=== PATIENT | female | born 1990 | race African-American/Black ===

== ENCOUNTER → 2016-12-17 08:14 | Outpatient (CLI) | payer MEDICAID ==
[2011-01-24 23:19] VITALS: BMI 18.5
== END ==
LOC: D.MRI 08:14
DX: M54.2 Cervicalgia (principal)

== ENCOUNTER 2017-11-13 09:15 | Day surgery (SDC) | payer MEDICAID ==
[2017-11-12 16:08] LABS: BASOPHILS 0.2 % (0-2); EOSINOPHILS 1.2 % (0-7); HEMATOCRIT 37.2 % (36.0-48.0); HEMOGLOBIN 12.2 g/dL (12-16); IMMATURE GRANULOCYTES 0.1 % (0-5); LYMPHOCYTES 26.2 % (15-50); MCHC 32.8 g/dL (31.0-37.0); MCV 82.3 fL (80.0-100.0); MEAN PLATELET VOLUME 10.5 fL (7.4-10.4); MONOCYTES 8.5 % (2-11); NEUTROPHILS 63.8 % (40-80); RBC 4.52 10x6/uL (4.00-5.40); RDW 14.3 % (11.5-14.5); WBC 8.5 10x3/uL (4.8-10.8)
[2017-11-12 16:24] LABS: PLATELET COUNT 284 10x3/uL (130-400)
[~2017-11-13] VITALS: Ht 170.2 cm; Wt 105.2 kg
--- NOTE | ~2017-11-13 | OP ---
PATIENT NAME: MARCI ADORNO MEDICAL RECORD: [id number] :88 LOCATION:D.[facility] ADMISSION DATE: SURGEON: YARELI SCHULTE MD DATE OF OPERATION: 11/13/2017 PREOPERATIVE DIAGNOSIS: Vaginal mass. POSTOPERATIVE DIAGNOSIS: Vaginal mass. PROCEDURE: Removal of vaginal mass. SURGEON: Yareli Schulte MD CANNERY TENDER ENGINEER: Mr. Bunch ANESTHESIOLOGIST: José Darnell MD ANESTHETIC: LMA with conscious sedation. FINDINGS: Approximately 1.5-cm fluctuant mass located superior to the right labia. This is at approximately the 10 o'clock position at the introitus. SPECIMEN REMOVED: Vaginal mass. SPECIMEN DISPOSITION: Pathology. ESTIMATED BLOOD LOSS: Minimal. FLUIDS: Lactated Ringer's 300 cc. URINE OUTPUT: Quantity sufficient void prior to the procedure. DRAINS: None. COMPLICATIONS: None. INDICATION: The patient is a 27-year-old female with a small vaginal mass that has been present, greater than 6 weeks. The patient reports discomfort with intimacy. The patient is concerned about the growth present. The patient is considered for removal of mass under anesthesia. DESCRIPTION OF PROCEDURE: After informed consent was assured, the patient was taken to the operating room, where anesthetic was obtained and she was placed in stirrups. With the help of the public health training assistant, visualization of the mass was made possible and the base was incised with a #15 blade using an elliptical incision. The mass was removed and passed to the attendant. The skin was now reapproximated with absorbable suture. The sponge, lap, and needle counts were correct at the close of this procedure. The patient was awakened and went to the recovery room in stable condition. TRANSINT:[id number] Voice Confirmation ID: [id number] DOCUMENT ID: [id number] OPERATIVE REPORT [id number] MARCI ADORNO YARELI SCHULTE MD at 1952 CC: [id number] DICTATION DATE: 11/19/171806 GAS METER READER: 11/19/17 [address] [facility] 11/13/17 [facility] [address] [place] [address]
[~2017-11-13 09:15] MED LIST: XALATAN 0.0052.5 ML EACH EYE
[2017-11-13 09:41] VITALS: BP 115/82; Ht 170.2 cm; Wt 105.2 kg
[2017-11-13 10:07] LABS: HCG URINE NEGATIVE (NEGATIVE)
== END 2017-11-13 13:55 | disposition home or self-care (01) ==
LOC: D.OPS 09:15
PROVIDERS: Obstetrics & Gynecology
DX: N90.7 Vulvar cyst (principal); Z01.812 Encounter for preprocedural laboratory examination

== ENCOUNTER 2018-05-07 10:52 | Emergency (ER) | payer MEDICAID ==
[~2018-05-07] VITALS: Ht 170.2 cm; Wt 95.5 kg
[2018-05-07 11:17] VITALS: Ht 170.2 cm; Wt 95.5 kg
[2018-05-07] MEDS ORDERED: PRENAVITE1 TAB PO (11:18)
[2018-05-07] MEDS ORDERED: PRENATAL VITAMINS (11:19)
[2018-05-07 11:56] LABS: APPEARANCE HAZY (CLEAR); BACTERIA MANY /hpf (NONE SEEN); BILIRUBIN NEGATIVE (NEGATIVE); COLOR STRAW (YELLOW); EPITHELIAL CELLS 0-5 /hpf (0-5); GLUCOSE NEGATIVE (NEGATIVE); KETONE NEGATIVE (NEGATIVE); NITRITE NEGATIVE (NEGATIVE); PROTEIN NEGATIVE (NEGATIVE); UROBILINOGEN NORMAL (NORMAL); WHITE CELLS - URINE 0-5 /hpf (0-5)
[2018-05-07] MEDS ORDERED: KEFLEX500 MG PO (13:40)
[2018-05-07 14:10] VITALS: BP 124/75
[2018-05-16] MEDS ORDERED: XALATAN 0.0052.5 ML EACH EYE (13:43)
== END 2018-05-07 14:10 | disposition home or self-care (01) ==
LOC: D.ER 10:52
PROVIDERS: Emergency Medicine
DX: O26.891 Other specified pregnancy related conditions, first trimester (principal); Z3A.01 Less than 8 weeks gestation of pregnancy; R30.0 Dysuria; R35.0 Frequency of micturition

== ENCOUNTER 2018-05-19 10:05 | Day surgery (SDC) | payer MEDICAID ==
[2018-05-16 14:10] LABS: BASOPHILS 0.3 % (0-2); HEMATOCRIT 35.3 % (36.0-48.0); HEMOGLOBIN 11.7 g/dL (12-16); IMMATURE GRANULOCYTES 0.3 % (0-5); LYMPHOCYTES 20.1 % (15-50); MCHC 33.1 g/dL (31.0-37.0); MCV 81.5 fL (80.0-100.0); MEAN PLATELET VOLUME 10.3 fL (7.4-10.4); MONOCYTES 9.1 % (2-11); NEUTROPHILS 69.2 % (40-80); PLATELET COUNT 276 10x3/uL (130-400); RBC 4.33 10x6/uL (4.00-5.40); RDW 13.8 % (11.5-14.5); WBC 7.9 10x3/uL (4.8-10.8)
[~2018-05-19] VITALS: Ht 170.2 cm; Wt 95.7 kg
[~2018-05-19 10:05] MED LIST changes: +KEFLEX500 MG PO; +PRENATAL VITAMINS; +PRENAVITE1 TAB PO
[2018-05-19 10:34] VITALS: BP 108/66; Ht 170.2 cm; Wt 95.7 kg
--- NOTE | 2018-05-19 15:14 | NUR ---
DC INSTRUCTIONS GIVEN TO PT/FAMILY. STATE UNDERSTANDING
--- NOTE | 2018-05-19 15:34 | NUR ---
DC'D IV CATH FULLY INTACT. PT VOIED.
--- NOTE | 2018-05-19 15:43 | NUR ---
PT LEFT UNIT VIA WC AT 1545
--- NOTE | 2018-05-23 07:46 | OP ---
PATIENT NAME: MARCI ADORNO MEDICAL RECORD: [id number] :88 LOCATION:D[facility] ADMISSION DATE: SURGEON: YARELI SCHULTE MD DATE OF OPERATION: 05/19/2018 PREOPERATIVE DIAGNOSIS: Missed . POSTOPERATIVE DIAGNOSIS: Missed . PROCEDURE: Dilation and evacuation with sharp curettage. SURGEON: Yareli Schulte MD ANESTHESIOLOGIST: José Darnell MD ANESTHETIC: General. FINDINGS: Uterus was enlarged, approximately 10-week size. Moderate amounts of products of conception returned. Vaginal vault was unremarkable. SPECIMEN REMOVED: Products of conception. SPECIMEN DISPOSITION: Pathology. ESTIMATED BLOOD LOSS: Minimal. FLUIDS: Lactated Ringer's, 400 cc. URINE OUTPUT: Quantity sufficient void prior to procedure. COMPLICATION: None. DRAINS: None. INDICATION: The patient is a 27-year-old female with known missed . The patient desires dilation and evacuation. DESCRIPTION OF PROCEDURE: After informed consent was assured and all risks and benefits had been discussed, the patient was taken to the operating room, where anesthetic was obtained. The patient was prepped and draped and speculum was introduced into the vagina after the patient had been placed in stirrups. The cervix was grasped and dilated to accommodate a #9 curved suction curette. This was passed gently to the fundus and suction was activated. Products of conceptions were removed on several passes. After removal of the products of conception, sharp curettage was performed until good cry was obtained throughout. The suction device was placed one more time into the uterine cavity to extract any remaining debris. Once this had been concluded, the single-tooth tenaculum was removed and ring forceps were placed over the puncture sites for hemostasis. Sponge, lap, and needle counts were correct times 2. The patient was taken down from the stirrups. Single-tooth tenaculum was removed prior to reversal of anesthesia. The patient was taken to PACU in stable condition. TRANSINT:[id number] Voice Confirmation ID: [id number] DOCUMENT ID: [id number] OPERATIVE REPORT [id number] MARCI ADORNO YARELI SCHULTE MD at 0746 CC: [id number] DICTATION DATE: 05/19/18 1313 MANPOWER DEVELOPMENT SPECIALIST MANAGER: 05/19/181917 [facility] 05/19/18 [facility] [address] [place] [address]
== END 2018-05-19 15:45 | disposition home or self-care (01) ==
LOC: D.OPS 10:05 → D.PAN 10:45 → D.OPS 10:45
PROVIDERS: Obstetrics & Gynecology
DX: O02.1 Missed abortion (principal); Z01.812 Encounter for preprocedural laboratory examination

== ENCOUNTER 2018-05-27 16:06 | Emergency (ER) | payer MEDICAID ==
[2018-05-19 10:34] VITALS: BMI 33.1
== END 2018-05-27 16:10 | disposition home or self-care (01) ==
LOC: D.ER 16:06
DX: N93.9 Abnormal uterine and vaginal bleeding, unspecified (principal)

== ENCOUNTER 2018-05-29 22:15 | Emergency (ER) | payer MEDICAID ==
[~2018-05-29] VITALS: Ht 170.2 cm; Wt 95.5 kg
[2018-05-29 22:20] VITALS: Ht 170.2 cm; Wt 95.5 kg
[2018-05-29 23:19] LABS: BASOPHILS 0.1 % (0-2); EOSINOPHILS 0.9 % (0-7); HEMATOCRIT 33.6 % (36.0-48.0); HEMOGLOBIN 10.9 g/dL (12-16); IMMATURE GRANULOCYTES 0.2 % (0-5); LYMPHOCYTES 24.6 % (15-50); MCH 26.7 pg (26.0-34.0); MCHC 32.4 g/dL (31.0-37.0); MCV 82.4 fL (80.0-100.0); MEAN PLATELET VOLUME 10.1 fL (7.4-10.4); MONOCYTES 6.8 % (2-11); NEUTROPHILS 67.4 % (40-80); RBC 4.08 10x6/uL (4.00-5.40); WBC 9.4 10x3/uL (4.8-10.8)
[2018-05-29 23:20] LABS: PLATELET COUNT 346 10x3/uL (130-400)
[2018-05-29 23:33] LABS: APTT 26.6 SECONDS (22.8-39.4); INR 1.1 (0.85-1.17); PROTIME 13.7 SECONDS (11.6-15.0)
[2018-05-29 23:34] LABS: ALBUMIN 3.5 g/dL (3.4-5.0); ALKALINE PHOSPHATASE 82 U/L (46-116); ALT (SGPT) 12 U/L (10-68); BILIRUBIN - TOTAL 0.19 mg/dL (0.2-1.3); CALC OSMOLALITY 281 mosm/kg (275-300); CALCIUM 8.8 mg/dL (8.5-10.1); CARBON DIOXIDE 24.2 mmol/L (21.0-32.0); CHLORIDE - SERUM 105 mmol/L (98-107); CREATININE - SERUM 0.8 mg/dL (0.6-1.3); GLUCOSE 104 mg/dL (74-106); POTASSIUM - SERUM 3.6 mmol/L (3.5-5.1); PROTEIN - SERUM 7.4 g/dL (6.4-8.2); SODIUM 141 mmol/L (136-145); UREA NITROGEN 14 mg/dL (7-18); eGFR NON AFRICAN AMERICAN 89 mL/min (90-120)
[2018-05-29 23:37] LABS: APPEARANCE CLOUDY (CLEAR); BILIRUBIN NEGATIVE (NEGATIVE); COLOR PINK (YELLOW); GLUCOSE NEGATIVE (NEGATIVE); KETONE NEGATIVE (NEGATIVE); NITRITE NEGATIVE (NEGATIVE); PROTEIN NEGATIVE (NEGATIVE); UROBILINOGEN NORMAL (NORMAL)
[2018-05-29 23:38] LABS: BACTERIA NONE SEEN /hpf (NONE SEEN); EPITHELIAL CELLS 0-5 /hpf (0-5); RED CELLS - URINE >50 /hpf (0-5)
[2018-05-30 01:47] VITALS: BP 123/77
== END 2018-05-30 01:48 | disposition home or self-care (01) ==
LOC: D.ER 22:15
PROVIDERS: Family Medicine
DX: N99.820 Postprocedural hemorrhage of a genitourinary system organ or structure following a genitourinary system procedure (principal); R10.2 Pelvic and perineal pain; F17.200 Nicotine dependence, unspecified, uncomplicated